=== PATIENT | female | born 1955 | race Two or more races ===

== ENCOUNTER → 2024-12-17 | Outpatient (CLI) | payer BC, SELFPAY ==
[2024-12-17 10:51] LABS: Cardiac Risk Estimate 2.2 RATIO (3.7-5.6); Cholesterol 136 mg/dL (132-200); HDL Cholesterol 63 mg/dL (40-60); LDL Cholesterol,Calculated 55 mg/dL (0-130); Triglycerides 90 mg/dL (30-150)
== END | disposition home or self-care (01) ==
LOC: COPL 09:31
PROVIDERS: PCP Family Medicine; Referring Provider Family Medicine; Visit Provider Family Medicine
DX: E78.2 Mixed hyperlipidemia (principal)
CPT/HCPCS: 36415; 80061

== ENCOUNTER 2025-03-03 01:32 | Emergency (ER) | payer BC, MEDICARE, SELFPAY ==
[2025-03-03 01:32] VITALS: BMI 24.0
[2025-03-03 01:40] VITALS: BP 156/86; PULSE 69; RESP 19; TEMP 36.5; O2SAT 100
--- NOTE | 2025-03-03 01:52 | XR_ITS ---
Examination: Abdomen sonogram, Limited Date and time of exam: March 03, 2025 0208 hrs. Indications: Onset right upper abdominal pain today Technique: Real-time ríos scale transabdominal sonographic images of the upper abdomen obtained. Findings: Multiple gallstones Gallbladder wall 0.3 cm Common bile duct 0.3 cm Pancreatic head 2.8 cm Liver 14 cm no focal liver lesions Normal hepatopedal portal venous flow Patent IVC Impression: Cholelithiasis, negative for cholecystitis
--- NOTE | 2025-03-03 01:55 | XR_ITS ---
Examination: CT abdomen with intravenous contrast CT pelvis with intravenous contrast 2-D coronal reconstructions 2-D sagittal reconstructions Date and time of exam:March 03, 2025 0406 hrs. Indications: Right upper abdominal pain epigastric pain beginning today. CTDI: vol (mGy) 6.23 DLP: (mGycm) 323 Technique: Multiple axial sections of the abdomen and pelvis have been obtained. 64 slice high-resolution scanner used. 3 mm axial sections have been obtained, post intravenous injection 60 cc [id number] 2-D sagittal, coronal reconstructions obtained. Low dose protocols were performed. One or more of the following dose reduction techniques were used; automated exposure control, adjustment of the mA and/or KV according to patient size, use of iterative reconstruction technique. Findings: No focal liver or splenic lesions Gallstones No definite gallbladder wall edema Common bile duct 6 mm no definite stones No pancreatic mass No renal or ureteral calculi Aorta normal size Normal appendix No bowel obstruction No diverticulitis No pelvic mass Intact urinary bladder Impression: Cholelithiasis Common bile duct 0.6 cm no common bile duct stones noted Normal appendix No bowel obstruction
[2025-03-03 02:17] LABS: Basophils % (Auto) 0 % (0-2.5); Eosinophils % (Auto) 0 % (0-10); Hematocrit 40.9 % (36.0-46.0); Hemoglobin 14.1 g/dL (12.0-16.0); Immature Granulocytes % (Auto) 0 % (0-0); Immature Granulocytes Auto 0.02 Thou/mm3 (0.00-0.00); Lymphocytes # (Auto) 1.2 Thou/mm3 (1.0-4.8); Lymphocytes % (Auto) 15 % (10-50); Mean Corpuscular HGB Conc 34.5 g/dl (31.0-37.0); Mean Corpuscular Volume 84 fL (80-100); Monocytes # (Auto) 0.4 Thou/mm3 (0.0-0.8); Monocytes % (Auto) 5 % (0-12); Neutrophils # (Auto) 6.1 Thou/mm3 (1.8-7.7); Neutrophils % (Auto) 79 % (37-80); Nucleated Red Blood Cell % 0 /100 WBC (0); Platelet Count 218 Thou/mm3 (140-440); RDW Standard Deviation 38.1 fL (36.4-46.3); Red Blood Count 4.86 Miln/mm3 (4.00-5.20); White Blood Count 7.7 Thou/mm3 (3.6-11.0)
[2025-03-03] MEDS: ONDANSETRON INJ 2 MG/ML INJ 2 ML 4 MG IV (02:32)
[2025-03-03] MEDS: MORPHINE SULF INJ 10 MG/ML VIAL 5 MG IVP ×2 (02:33→05:28)
[2025-03-03 02:36] LABS: Alanine Aminotransferase 25 U/L (10-49); Albumin, Serum 4.8 gm/dL (3.4-4.8); Albumin/Globulin Ratio 1.8 (1.2-2.2); Alkaline Phosphatase 63 U/L (46-116); Anion Gap 10 (7-16); Aspartate Amino Transferase 23 U/L (0-34); BUN/Creatinine Ratio 16 Ratio (12-20); Bilirubin,Total 0.7 mg/dL (0.3-1.2); Blood Urea Nitrogen 13 mg/dL (9-23); Calcium 10.7 mg/dL (8.3-10.6); Calcium (Corrected) 10.7 mg/dL (8.5-10.1); Carbon Dioxide 22.8 mMol/L (20.0-31.0); Chloride 106 mMol/L (98-107); Creatinine (Component) 0.8 mg/dL (0.6-1.3); Estimated Creatinine Clearance 58.9 mL/min (>60); Globulin 2.7 gm/dL (2.3-3.5); Glucose 137 mg/dL (74-106); Lipase 34 U/L (12-53); Osmolality,Calculated 279 (275-295); Sodium 139 mMol/L (136-145); Total Protein 7.5 gm/dL (5.7-8.2); eGFR > 60 See Note
[2025-03-03 02:48] VITALS: BP 157/82; PULSE 61; RESP 17; TEMP 36.8; O2SAT 98
--- NOTE | 2025-03-03 02:57 | PRELIM_ITS ---
Right upper quadrant abdominal ultrasound with Limited Doppler. March 03, 2025 0208 hours Clinical history: RUQ pain Findings: The liver is normal in echogenicity. No intrahepatic biliary ductal dilatation. There is a 1.9 cm nonmobile/impacted calculus at the gallbladder neck. The gallbladder is distended.No wall thickening or pericholecystic fluid is demonstrated. The common bile duct is normal in caliber at 3mm. The pancreas is unremarkable to the extent visualized. The main portal vein is patent and demonstrates hepatopetal flow.Hepatic veins are patent.There is no hydronephrosis on the right. Impression: Cholelithiasis with a nonmobile/impacted calculus at the gallbladder neck. No gallbladder wall thickening, pericholecystic fluid or biliary dilatation. Recommend clinical correlation and followup. Report Electronically Signed By: Maximino Coyne 03/03/2025 2:57:27 AM [EST]
--- NOTE | 2025-03-03 03:57 | EDNOTE_ITS ---
ED Abdominal Pain RME/HPI General Chief Complaint: Abdominal Pain Stated complaint: ABD PAIN/ VOMITING X 1DAY Time seen by provider: 03/03/25 01:52 Arrival date/time: 03/03/25 01:32 69F with history of HLD presents to ED with 1 day of RUQ/epigastric pain and N/V. Limitations: no limitations Related Data Previous Rx's ?Medication ?Instructions ?Recorded hydrocodone 5 mg-acetaminophen 325 1 tab PO BID PRN pa in #7 tabs 03/03/25 mg tablet ondansetron 4 mg disintegrating 4 mg PO Q8H PRN nausea and 03/03/25 tablet vomiting #14 tabs Allergies Allergy/AdvReac Type Severity Reaction Status Date / Time No Known Allergies Allergy Verified 02/16/24 15:14 Review of Systems Review of Systems Systems Reviewed: All systems reviewed, normal except as documented Constitutional Constitutional: Reports system reviewed and no additional complaints, except as documented, Denies fever(s) and Denies headache(s) ENT Ears, Nose, Mouth, and Throat: Denies disequilibrium and Denies headache(s) Cardiovascular Cardiovascular: Reports system reviewed and no additional complaints, except as documented, Denies chest pain and Denies dyspnea Respiratory Respiratory: Reports system reviewed and no additional complaints, except as documented, Denies cough and Denies dyspnea Gastrointestinal Gastrointestinal: Reports system reviewed and no additional complaints, except as documented, Reports as per HPI, Reports abdominal pain, Reports nausea and Reports vomiting Neurologic Neurologic: Reports system reviewed and no additional complaints, except as documented, Denies confusion, Denies disequilibrium and Denies headache(s) Psychiatric Psychiatric: Denies confusion Past Medical History Past Medical History NEUROLOGIC: Positive Neurological Disorders and Migraine; Negative Seizures CARDIAC: Positive Cardiac Disorders and Hypercholesterolemia; Negative Congestive Heart Failure RESPIRATORY: Negative Chronic Obstructive Pulmonary Disease (COPD) or Asthma GASTROINTESTINAL: Negative Gastrointestinal Disorders GENITOURINARY: Negative Genitourinary Disorders or Renal Disease REPRODUCTIVE: Positive Previous Pregnancies MUSCULOSKELETAL: Negative Musculoskeletal Disorders ENDOCRINE: Negative Endocrine Disorders, Diabetes Mellitus Type 1 or Diabetes Mellitus Type 2 HEMATOLOGIC: Negative Anemia or Sickle Cell Disease PSYCHO/SOCIAL: Negative Depression or Anxiety OTHER HISTORY: Negative Hospitalization, Down Syndrome, Falls, Blood Transfusions, Anesthesia Reactions, Organ Transplant, MRSA, Clostridium Diff icile or Cancer Family History FAMILY HISTORY: Negative Family Cardiac Disorders Surgical History SURGICAL: Positive Section; Negative Organ Transplant Social History SMOKING STATUS: Never smoker SUBSTANCE USE: does not use ED Exam General Limitations: Present no limitations General appearance: Present alert and in no apparent distress Head Head exam: Present atraumatic Eye Eye exam: Present normal appearance, PERRL and EOMI ENT ENT exam: Present normal exam, normal oropharynx and mucous membranes moist Neck Neck exam: Present normal inspection, full ROM and trachea midline Chest Chest inspection: Present normal inspection and symmetric chest wall rise Respiratory Respiratory exam: Present normal lung sounds bilaterally Cardiovascular Cardiovascular exam: Present regular rate, normal rhythm and normal heart sounds Abdominal Exam Abdominal exam: Present soft and normal bowel sounds Abdominal tenderness: Present RUQ and epigastrium Extremities Exam Extremities exam: Present normal inspection and full ROM Back Exam Back exam: Present normal inspection and full ROM Neurological Exam Neurological exam: Present alert, oriented X3 and CN II-XII intact Psychiatric Psychiatric exam: Present normal affect and normal mood Skin Skin exam: Present warm, dry, intact and normal color Course Quality Measures none Orders Category Date Time Status CT Screening NOW Care 03/03/25 01:55 Active Insert IV NOW Care 03/03/25 01:[address] abdomen pelvis w con Stat Exams 03/03/25 01:55 Taken US gall bladder Stat Exams 03/03/25 01:52 Taken CBC Stat Lab 03/03/25 02:03 Completed CMP [Comprehensive Metabolic Panel] Stat Lab 03/03/25 02:03 Completed Drug Screen,Urine Stat Lab 03/03/25 03:59 Completed Lipase Stat Lab 03/03/25 02:03 Completed UA [Urinalysis] Stat Lab 03/03/25 03:59 Completed Ketorolac Inj [Toradol Inj] Med 03/03/25 05:17 Once 15 mg IVP X1 ONE Morphine Inj Med 03/03/25 01:52 Discontinued 5 mg IVP X1 ONE Morphine Inj Med 03/03/25 05:04 Discontinued 5 mg IVP X1 ONE Ondansetron Inj [Zofran Inj] Med 03/03/25 01:52 Discontinued 4 mg IV X1 ONE Vital Signs Vital signs: Vital Signs Temperature 97.7 F 03/03/25 01:40 Pulse Rate 69 03/03/25 01:40 Respiratory Rate 19 03/03/25 01:40 Blood Pressure 156/86 H 03/03/25 01:40 Pulse Oximetry (%) 100 03/03/25 01:40 Oxygen Delivery Method Room Air 03/03/25 01:40 O2 at 100% on RA and WNLs Abdominal Pain MDM MDM Narrative MDM Narrative:: 69F with history of HLD presents to ED with 1 day of RUQ/epigastric pain and N/V. Physical exam reveals RUQ/epigastric tenderness. Patient is afebrile, alert, but appears to be in pain. CT shows possible cholecystitis. US reveals 2 cm stone in gallbladder neck, but no signs of cholecystitis. No leukocytosis. CMP normal. Lipase normal. Spoke to Dr. Brunner, who states patient does not need to be admitted and can be followed outpatient. Patient counseled could be very early cholecystitis and to return if worsening pain and/or fevers/chills. Patient understands and will do so. Patient data External records reviewed:: [facility] previous records Clinical information provided by:: patient Social determinants that could affect healthcare access:: none Patient has the following chronic illnesses:: HLD How is presenting disease/condition affected by chronic disease/condition?: uneffected by Evaluation data The following diagnostics were reviewed and interpreted by me:: lab results and radiology exam(s) Lab and/or radiology exams considered but not ordered:: ordered Interpretation Summary: above Medications / Prescriptions Medications or Prescriptions considered but not ordered:: ordered Medication administrations:: Medication Administration History Ketorolac Tromethamine (Ketorolac Inj 30 Mg/Ml Vial) 15 mg IVP X1 ONE Stop: 03/03/25 05:18 Discontinued Medications Morphine Sulfate (Morphine Sulf Inj 10 Mg/Ml Vial) 5 mg IVP X1 ONE Stop: 03/03/25 01:53 Last Admin: 03/03/25 02:33 Dose: 5 mg Documented By: EF Morphine Sulfate (Morphine Sulf Inj 10 Mg/Ml Vial) 5 mg IVP X1 ONE Stop: 03/03/25 05:05 Ondansetron HCl (Ondansetron Inj 2 Mg/Ml Inj 2 Ml) 4 mg IV X1 ONE; Protocol Stop: 03/03/25 01:53 Last Admin: 03/03/25 02:32 Dose: 4 mg Documented By: EF above Consultations Consultation(s) initiated? (list below): Yes Diagnosis Differential diagnosis abdominal pain: abdominal pain, acute appendicitis, calculus of kidney, constipation, diverticulitis, endometriosis, gastroenteritis, pancreatitis, small bowel obstruction and other (biliary disease) Most likely diagnosis given after review of the tests above:: gallstones Admission Indicated Admission indicated?: not indicated Admission Request Was there a request for admission?: Yes Admission Attestation Admission request attestation: Discussed case with [Dr. Brunner] from General Surgery service regarding admission. Discussed patients ED course, exam findings, labs, and radiology results. The Surgeon [declines] to accept the patient for admission. Disposition Plan Disposition Plan: Discharge Discharge Attestation Discharge Attestation: The patient and all family members were given an opportunity to ask questions and understood the discharge instructions. Discharge instructions specifically effects, indications for sooner follow up or return to the emergency department, and the expected course of current diagnosis. Patient condition: Stable Discharge Plan Plan Patient Disposition: HOME (Self Care) Disposition Comment: Stable Prescriptions/Referrals Prescriptions/Med Rec: New hydrocodone-acetaminophen 5-325 mg tablet 1 tab PO BID MDD 2 PRN (Reason: pain) Qty: 7 0RF ondansetron 4 mg tablet,disintegrating 4 mg PO Q8H PRN (Reason: nausea and vomiting) Qty: 14 0RF Referrals: Temporary Provider,ED [Physician] - In 1 week Problem List Clinical Impression: Gallstones Patient/Caregiver Discharge Instructions Education Materials: ED Gallstones with Biliary Colic Additional Instructions: Please follow-up with PCP within 24-48 hours and return immediately if symptoms worsen. Print Language: British Stand Alone Forms: Patient Portal Info Letter HAO/LEIA Supervising Physician HAO/LEIA Supervising Physician: Dr. Nance
[2025-03-03 04:01] LABS: Collection Type, Urine Clean Catch; Squamous Epithelial Cell,Urine 0 /hpf (0-5)
[2025-03-03 04:07] LABS: Bilirubin,Urine Negative (Negative); Blood,Urine 2+ (Negative); Clarity,Urine Clear (Clear/Hazy); Color,Urine Yellow (Lt Yel-Yel); Glucose, Urine Negative (Negative); Hyaline Casts,Urine < 1 /hpf (0-1); Ketones,Urine Negative (Negative); Leukocyte Esterase,Urine Positive (Negative); Nitrite,Urine Negative (Negative); PH,Urine 5.5 (5.0-7.0); Protein,Urine Trace (Neg - Trace); RBC,Urine 8 /hpf (0-3); Specific Gravity,Urine 1.026 (1.001-1.035); Urobilinogen,Urine Negative mg/dL (0.0-1.0); WBC,Urine 4 /hpf (0-5)
[2025-03-03 04:17] LABS: Amphetamine/Methamp Scrn,U Negative (Negative); Barbiturate Screen,Urine Negative (Negative); Benzodiazepines Screen,Urine Negative (Negative); Benzoylecgonine Screen, Ur Negative (Negative); Fentanyl Screen,Urine Negative (Negative); Opiate Screen,Urine Negative (Negative); THC Screen,Urine Negative (Negative)
--- NOTE | 2025-03-03 04:58 | PRELIM_ITS ---
CT scan of the abdomen and pelvis with intravenous contrast (axial sections with sagittal and coronal reformats). March 03, 2025 at 0406 hours Clinical History: Right upper quadrant epigastric pain Correlated with the prior ultrasound study dated March 03, 2025. Findings: Multiple peripherally calcified gallstones suggested within the gallbladder. There may be gallbladder wall thickening anteriorly. Few nonspecific left lobe hepatic hypodensities suggested and may represent cysts. The spleen, pancreas, adrenals and kidneys are unremarkable. Urinary bladder is of normal partially filled configuration. Reproductive organs are unremarkable. There is underdistention of the stomach and portions of large bowel which evaluation. There are colonic diverticula without evidence of diverticulitis. Appendix is normal. There is no free intraperitoneal air or fluid. There is no abdominal or pelvic lymphadenopathy. There are bibasilar densities which may represent atelectasis and/or pneumonia. There is no acute osseous abnormality. Impression: 1. Possible acute calculus cholecystitis. Recommend correlation with nuclear medicine hepatobiliary scan. 2. Colonic diverticula without evidence of diverticulitis. Report Electronically Signed By: David West 03/03/2025 4:58:14 AM [EST]
[2025-03-03] MEDS: KETOROLAC INJ 30 MG/ML VIAL 15 MG IVP (05:28)
[2025-03-03 05:53] VITALS: BP 151/88; PULSE 62; RESP 16; TEMP 36.7; O2SAT 98
== END 2025-03-03 05:56 | disposition home or self-care (01) ==
PROVIDERS: Physician Assistant; Emergency Provider Emergency Medicine; PCP Family Medicine
DX: K80.20 Calculus of gallbladder without cholecystitis without obstruction (principal); E78.00 Pure hypercholesterolemia, unspecified
CPT/HCPCS: 36415; 74177; 76705; 80053; 80307; 81001; 83690; 85025; 96374; 96375; 96376; 99285; A4649; J1885; J2270; J2405; Q9967

== ENCOUNTER 2025-03-04 17:04 | Emergency (ER) | payer MEDICARE, BC, SELFPAY ==
[2025-03-04 17:35] VITALS: BP 121/73; PULSE 76; RESP 18; TEMP 36.6; O2SAT 97
[2025-03-04 17:45] VITALS: BP 136/77; PULSE 74; RESP 19; TEMP 36.9; O2SAT 95; BMI 23.0
--- NOTE | 2025-03-04 17:47 | PD.EDRME ---
Rapid Medical Screening Exam RME Arrival date/time: 03/04/25 17:04 69-year-old female presents to the emergency department a day for complaints of upper abdominal pain patient was evaluated yesterday and diagnosed with gallstones Chief Complaint: Flu Like Symptoms Vital signs: Vital Signs Temperature 98 F 03/04/25 17:35 Pulse Rate 76 03/04/25 17:35 Respiratory Rate 18 03/04/25 17:35 Blood Pressure 121/73 03/04/25 17:35 Pulse Oximetry (%) 97 03/04/25 17:35 Oxygen Delivery Method Room Air 03/04/25 17:35
--- NOTE | 2025-03-04 18:39 | PD.EDABDPN ---
ED Abdominal Pain RME/HPI General Chief Complaint: Flu Like Symptoms Stated complaint: Abdominal pain with nausea and vomiting Time seen by provider: 03/04/25 18:38 Arrival date/time: 03/04/25 17:04 RME / HPI RME / HPI narrative: 03/04/25 17:04 69-year-old female presents to the emergency department a day for complaints of upper abdominal pain patient was evaluated yesterday and diagnosed with gallstones Related Data Previous Rx's ?Medication ?Instructions ?Recorded hydrocodone 5 mg-acetaminophen 325 1 tab PO BID PRN pain #7 tabs 03/03/25 mg tablet ondansetron 4 mg disintegrating 4 mg PO Q8H PRN nausea and 03/03/25 tablet vomiting #14 tabs Allergies Allergy/AdvReac Type Severity Reaction Status Date / Time No Known Allergies Allergy Verified 03/04/25 17:07 Course Orders Category Date Time Status US gall bladder Stat Exams 03/04/25 18:38 Ordered CBC Stat Lab 03/04/25 17:46 Ordered Comprehensive Metabolic Panel Stat Lab 03/04/25 17:46 Ordered Lipase Stat Lab 03/04/25 17:46 Ordered Vital Signs Vital signs: Vital Signs Temperature 98 F 03/04/25 17:35 Pulse Rate 76 03/04/25 17:35 Respiratory Rate 18 03/04/25 17:35 Blood Pressure 121/73 03/04/25 17:35 Pulse Oximetry (%) 97 03/04/25 17:35 Oxygen Delivery Method Room Air 03/04/25 17:35 Discharge Plan Prescriptions/Referrals Prescriptions/Med Rec: No Action hydrocodone-acetaminophen 5-325 mg tablet 1 tab PO BID MDD 2 PRN (Reason: pain) Qty: 7 0RF ondansetron 4 mg tablet,disintegrating 4 mg PO Q8H PRN (Reason: nausea and vomiting) Qty: 14 0RF Referrals: Annabelle Mane MD [Primary Care Provider] - In 1 week Patient/Caregiver Discharge Instructions Print Language: Ecuadorean
[2025-03-04 18:53] LABS: Basophils % (Auto) 0 % (0-2.5); Eosinophils # (Auto) 0.1 Thou/mm3 (0.0-0.5); Eosinophils % (Auto) 1 % (0-10); Hematocrit 41.1 % (36.0-46.0); Hemoglobin 13.9 g/dL (12.0-16.0); Immature Granulocytes % (Auto) 0 % (0-0); Immature Granulocytes Auto 0.03 Thou/mm3 (0.00-0.00); Lymphocytes # (Auto) 1.1 Thou/mm3 (1.0-4.8); Lymphocytes % (Auto) 15 % (10-50); Mean Corpuscular HGB Conc 33.8 g/dl (31.0-37.0); Mean Corpuscular Hemoglobin 28.9 pg (25.0-35.0); Mean Corpuscular Volume 85 fL (80-100); Monocytes # (Auto) 0.8 Thou/mm3 (0.0-0.8); Monocytes % (Auto) 11 % (0-12); Neutrophils # (Auto) 5.3 Thou/mm3 (1.8-7.7); Neutrophils % (Auto) 73 % (37-80); Nucleated Red Blood Cell % 0 /100 WBC (0); Platelet Count 174 Thou/mm3 (140-440); RDW Standard Deviation 39.6 fL (36.4-46.3); Red Blood Count 4.81 Miln/mm3 (4.00-5.20); White Blood Count 7.2 Thou/mm3 (3.6-11.0)
[2025-03-04 19:17] LABS: Alanine Aminotransferase 25 U/L (10-49); Albumin, Serum 4.7 gm/dL (3.4-4.8); Albumin/Globulin Ratio 1.8 (1.2-2.2); Alkaline Phosphatase 57 U/L (46-116); Anion Gap 9 (7-16); Aspartate Amino Transferase 18 U/L (0-34); BUN/Creatinine Ratio 19 Ratio (12-20); Bilirubin,Total 0.8 mg/dL (0.3-1.2); Blood Urea Nitrogen 15 mg/dL (9-23); Calcium 10.9 mg/dL (8.3-10.6); Calcium (Corrected) 10.9 mg/dL (8.5-10.1); Carbon Dioxide 27.5 mMol/L (20.0-31.0); Chloride 105 mMol/L (98-107); Creatinine (Component) 0.8 mg/dL (0.6-1.3); Estimated Creatinine Clearance 56.4 mL/min (>60); Globulin 2.6 gm/dL (2.3-3.5); Glucose 117 mg/dL (74-106); Lipase 25 U/L (12-53); Osmolality,Calculated 283 (275-295); Potassium 3.8 mMol/L (3.4-5.1); Sodium 141 mMol/L (136-145); Total Protein 7.3 gm/dL (5.7-8.2); eGFR > 60 See Note
== END 2025-03-04 19:15 | disposition left against medical advice (07) ==
PROVIDERS: Nurse Practitioner Primary Care; Emergency Provider Emergency Medicine; PCP Family Medicine
DX: K80.20 Calculus of gallbladder without cholecystitis without obstruction (principal); Z53.29 Procedure and treatment not carried out because of patient's decision for other reasons
CPT/HCPCS: 36415; 76705; 80053; 81001; 83690; 85025; 99281

== ENCOUNTER 2025-03-07 12:36 | Day surgery (SDC) | payer BC, MEDICARE, SELFPAY ==
[2025-03-07] VITALS (12 sets, daily range): BP systolic 117–152; BP diastolic 70–91; PULSE 57–79; RESP 14–20; TEMP 36.1–37.2; O2SAT 95–100; BMI 23.8; BMI 25.9
--- NOTE | 2025-03-07 12:57 | PD.EDRME ---
Rapid Medical Screening Exam RME Arrival date/time: 03/07/25 12:36 69-year-old female with no known medical history presents to the emergency room with orders from Dr Brunner for a cholecystectomy. I have greeted and performed a focused initial assessment of this patient. A comprehensive ED assessment and evaluation of the patient, analysis of all test results, and completion of the medical decision making process will be conducted by additional ED providers. Chief Complaint: Abdominal Pain Vital signs: Vital Signs Temperature 98.6 F 03/07/25 12:50 Pulse Rate 64 03/07/25 12:50 Respiratory Rate 19 03/07/25 12:50 Blood Pressure 134/84 H 03/07/25 12:50 Pulse Oximetry (%) 96 03/07/25 12:50 Oxygen Delivery Method Room Air 03/07/25 12:50 Vital signs reviewed by provider: Yes
--- NOTE | 2025-03-07 13:34 | PD.EDABDPN ---
ED Abdominal Pain RME/HPI General Chief Complaint: Abdominal Pain Stated complaint: ABDOMINAL PAIN X5 DAYS Time seen by provider: 03/07/25 13:25 Arrival date/time: 03/07/25 12:36 RME / HPI RME / HPI narrative: 03/07/25 12:36 69-year-old female with no known medical history presents to the emergency room with orders from Dr Brunner for a cholecystectomy. I have greeted and performed a focused initial assessment of this patient. A comprehensive ED assessment and evaluation of the patient, analysis of all test results, and completion of the medical decision making process will be conducted by additional ED providers. DR. VILLALOBOS MAIN ED EVALUATION: 69 year old female presents to the emergency department accompanied by her daughter with complaint of abdominal pain. Patient was sent by Dr. Honeycutt?s office for surgery. Last oral intake was water at 12 PM today; the patient had no food today. Associated symptoms include nausea. No vomiting or diarrhea. No other symptoms reported. PMHx: Gallstones, migraines, hypercholesterolemia, and a section. Social Hx: No tobacco, alcohol, or substance use. Related Data Previous Rx's ?Medication ?Instructions ?Recorded hydrocodone 5 mg-acetaminophen 325 1 tab PO BID PRN pain #7 tabs 03/03/25 mg tablet ondansetron 4 mg disintegrating 4 mg PO Q8H PRN nausea and 03/03/25 tablet vomiting #14 tabs Allergies Allergy/AdvReac Type Severity Reaction Status Date / Time No Known Allergies Allergy Verified 03/04/25 17:07 Review of Systems Review of Systems Systems Reviewed: All systems reviewed, normal except as documented Past Medical History Past Medical History NEUROLOGIC: Positive Neurological Disorders and Migraine CARDIAC: Positive Cardiac Disorders and Hypercholesterolemia REPRODUCTIVE: Positive Previous Pregnancies Surgical History SURGICAL: Positive Section Social History SMOKING STATUS: Never smoker SUBSTANCE USE: does not use ALCOHOL: Never ED Exam Narrative Physical exam: GENERAL APPEARANCE: alert and oriented x 4, well-developed, well-nourished VITALS: All vitals were reviewed and the pulse ox is 96% on room air, which is normal according to my interpretation. HEENT: Normocephalic, atraumatic; pupils equal, round, reactive to light; EOMI; mucous membranes pink, moist; oropharynx clear NECK: Supple LUNGS: CTABL; no wheezes, no rales, no rhonchi HEART: Regular rate, regular rhythm; normal S1, S2; no murmurs ABDOMEN: non distended; normal BS; tender on palpation of the mid abdomen, no rebound; no masses, no organomegaly, no hernia BACK: no CVA tenderness EXTREMITIES: atraumatic; no edema NEUROLOGIC: awake; alert and oriented x4; cranial nerves II-XII grossly intact; no focal sensory or motor deficits PSYCHIATRIC: appropriate mood and affect SKIN: warm, dry, normal color; no rashes Course Quality Measures none Orders Category Date Time Status Place in Observation Status Routine Admission 03/07/25 14:48 Active Bedside COVID-19 Antigen Test NOW Care 03/07/25 13:35 Active Well Blower NOW Care 03/07/25 13:35 Active EKG (ED ONLY) *Do not use* NOW Care 03/07/25 13:35 Completed Insert IV STAT Care 03/07/25 12:54 Active EKG (ED Only) Stat Exams 03/07/25 13:35 Draft B-Type Natriuretic Peptide Stat Lab 03/07/25 14:10 Received CBC Stat Lab 03/07/25 14:10 Completed Comprehensive Metabolic Panel Stat Lab 03/07/25 14:10 Received Lipase Stat Lab 03/07/25 14:10 Received Magnesium Stat Lab 03/07/25 14:10 Received Partial Thromboplastin Time Stat Lab 03/07/25 14:10 Completed Prothrombin Time with INR Stat Lab 03/07/25 14:10 Completed Troponin I Stat Lab 03/07/25 14:10 Received Morphine Inj Med 03/07/25 13:36 Discontinued 5 mg IVP X1 ONE Ondansetron Inj [Zofran Inj] Med 03/07/25 13:36 Discontinued 4 mg IV X1 ONE Piper/Tazo 3.375 gm Premix [Zosyn] Med 03/07/25 12:54 Discontinued 3.375 gm in 50 ml IV X1 Sodium Chloride 0.9% 1000 ml [Ns] 1,000 ml Med 03/07/25 12:55 Active IV 125 mls/hr Vital Signs Vital signs: Vital Signs Temperature 98.6 F 03/07/25 12:50 Pulse Rate 64 03/07/25 12:50 Respiratory Rate 19 03/07/25 12:50 Blood Pressure 134/84 H 03/07/25 12:50 Pulse Oximetry (%) 96 03/07/25 12:50 Oxygen Delivery Method Room Air 03/07/25 12:50 Abdominal Pain MDM MDM Narrative MDM Narrative:: I, Kiarra Sena am scribing for and in the presence of Dr. Villalobos. Patient data External records reviewed:: [facility] previous records (Reviewed last ED visit dated 03/04/25, discharged with the following: Abdominal pain with nausea and vomiting) Clinical information provided by:: patient and family (daughter) Social determinants that could affect healthcare access:: none Patient has the following chronic illnesses:: Gallstones, migraines, hypercholesterolemia, and a section. How is presenting disease/condition affected by chronic disease/condition?: exacerbated by Evaluation data The following diagnostics were reviewed and interpreted by me:: lab results and EKG tracing(s) Lab and/or radiology exams considered but not ordered:: none Interpretation Summary: EKG#1: EKG at 1428 hours. Interpreted by me: sinus bradycardia, rate 57, T wave inversion in V1 and lead 3 Medications / Prescriptions Medications or Prescriptions considered but not ordered:: none Medication administrations:: Medication Administration History Sodium Chloride (Ns) 1,000 mls @ 125 mls/hr IV .Q8H RACHEL Stop: 04/06/25 12:54 Last Admin: 03/07/25 14:15 Dose: 125 mls/hr Documented By: DAWSON Discontinued Medications Bupivacaine HCl/Epinephrine Bitart (Bupivacaine Mpf/Epi 0.5% 30 Ml Vial 1:200,000) Confirm Administered Dose 30 ml .ROUTE .STK-MED ONE Stop: 03/07/25 14:54 Piperacillin/Tazobactam/Dextrose (Zosyn) 3.375 gm in 50 mls @ 100 mls/hr IV X1 ONE Stop: 03/07/25 13:23 Last Admin: 03/07/25 14:15 Dose: 100 mls/hr Documented By: DAWSON Morphine Sulfate (Morphine Sulf Inj 10 Mg/Ml Vial) 5 mg IVP X1 ONE Stop: 03/07/25 13:37 Last Admin: 03/07/25 14:23 Dose: Not Given Documented By: DB Non-Admin Reason: Change of Condition Ondansetron HCl (Ondansetron Inj 2 Mg/Ml Inj 2 Ml) 4 mg IV X1 ONE Stop: 03/07/25 13:37 Last Admin: 03/07/25 14:23 Dose: Not Given Documented By: DB Non-Admin Reason: Change of Condition see above Consultations Consultation(s) initiated? (list below): Yes Consultation #1 (Physician, Specialty, Details): Discussed test HPI, PMHx, lab, radiology results and/or management with Dr. Honeycutt. Will admit for further evaluation and management. Accepts patient for surgery. Time: 13:43 Diagnosis Differential diagnosis abdominal pain: abdominal pain Most likely diagnosis given after review of the tests above:: Acute cholecystitis Admission Indicated Admission indicated?: indicated Admission Request Was there a request for admission?: Yes Admission Attestation Admission request attestation: Discussed case with [] from Hospitalist service regarding admission. Discussed patients ED course, exam findings, labs, and radiology results. The Hospitalist [agrees,declines] to accept the patient for admission. Disposition Plan Disposition Plan: Admit Discharge Plan Problem List Clinical Impression: Acute cholecystitis
--- NOTE | 2025-03-07 13:35 | EKG_ITS ---
[facility] Test Date: 2025-03-07 Pat Name: WADE COKER Department: Room: - Gender: Female [employer]: : 1955 Requested By: Yoselin Guevara Order Number: [id number] Reading MD: Yoselin Guevara Measurements Intervals [place] Rate: 57 P: 30 TX: 129 QRS: -13 QRSD: 110 T: 11 QT: 427 QTc: 419 Interpretive Statements SINUS BRADYCARDIA POSSIBLE LATERAL MYOCARDIAL INFARCTION , PROBABLY OLD [30 ms Q WAVE IN I/aVL/V5/V6] Compared to ECG 03/07/2020 13:15:39 Sinus rhythm no longer present Myocardial infarct finding still present /store/S0/[id number]/ecg/[id number].pdf
[2025-03-07] MEDS: PIPER/TAZO 3.375 GM PREMIX 3.375 GM/50 ML BAG IV ×2 (14:15→22:10)
[2025-03-07] MEDS: SODIUM CHLORIDE 0.9% 1000 ML 1,000 ML 125 ML IV (14:15)
[2025-03-07 14:21] LABS: Basophils % (Auto) 0 % (0-2.5); Eosinophils # (Auto) 0.1 Thou/mm3 (0.0-0.5); Eosinophils % (Auto) 1 % (0-10); Hemoglobin 13.2 g/dL (12.0-16.0); Immature Granulocytes % (Auto) 0 % (0-0); Immature Granulocytes Auto 0.02 Thou/mm3 (0.00-0.00); Lymphocytes # (Auto) 1.4 Thou/mm3 (1.0-4.8); Lymphocytes % (Auto) 28 % (10-50); Mean Corpuscular HGB Conc 33.8 g/dl (31.0-37.0); Mean Corpuscular Hemoglobin 28.8 pg (25.0-35.0); Mean Corpuscular Volume 85 fL (80-100); Monocytes # (Auto) 0.6 Thou/mm3 (0.0-0.8); Monocytes % (Auto) 12 % (0-12); Neutrophils # (Auto) 2.8 Thou/mm3 (1.8-7.7); Neutrophils % (Auto) 58 % (37-80); Nucleated Red Blood Cell % 0 /100 WBC (0); Platelet Count 197 Thou/mm3 (140-440); Red Blood Count 4.58 Miln/mm3 (4.00-5.20); White Blood Count 4.8 Thou/mm3 (3.6-11.0)
[2025-03-07 14:34] LABS: Partial Thromboplastin Time 25.7 Seconds (22.0-36.0); Prothrombin Time 11.4 Seconds (9.0-12.2)
--- NOTE | 2025-03-07 14:35 | PC.NURSE ---
REPORT GIVEN TO YOUNG FROM SURGERY AT THIS TIME
[2025-03-07 14:42] LABS: Alanine Aminotransferase 28 U/L (10-49); Albumin, Serum 4.4 gm/dL (3.4-4.8); Albumin/Globulin Ratio 1.6 (1.2-2.2); Alkaline Phosphatase 73 U/L (46-116); Anion Gap 9 (7-16); Aspartate Amino Transferase 18 U/L (0-34); BUN/Creatinine Ratio 21 Ratio (12-20); Bilirubin,Total 0.9 mg/dL (0.3-1.2); Blood Urea Nitrogen 15 mg/dL (9-23); Calcium 10.3 mg/dL (8.3-10.6); Calcium (Corrected) 10.3 mg/dL (8.5-10.1); Carbon Dioxide 28.9 mMol/L (20.0-31.0); Chloride 105 mMol/L (98-107); Creatinine (Component) 0.7 mg/dL (0.6-1.3); Estimated Creatinine Clearance 65.9 mL/min (>60); Globulin 2.7 gm/dL (2.3-3.5); Glucose 82 mg/dL (74-106); Lipase 37 U/L (12-53); Osmolality,Calculated 284 (275-295); Potassium 3.4 mMol/L (3.4-5.1); Sodium 143 mMol/L (136-145); Total Protein 7.1 gm/dL (5.7-8.2); Troponin I < 0.020 ng/mL (0.0-0.045); eGFR > 60 See Note
[2025-03-07 14:59] LABS: B-Type Natriuretic Peptide 20 pg/mL (0-100)
--- NOTE | 2025-03-07 16:14 | ESHP_ITS ---
HPI Date of Admission 03/07/25 14:48 Chief Complaint Chief Complaint: Patient is admitted with a diagnosis of acute calculus cholecystitis HPI History of present illness revealed that the patient has been in good health until last Friday when she started a pain in the upper abdomen associated with vomiting. She came to the emergency room and was found to have a gallstones but was discharged because her labs were normal. She continued to have pain and vomiting on return to the emergency room on Friday but was once again discharged. She is in continuous pain since discharge and came to my office today. My examination showed significant tenderness in the right upper quadrant with a positive Bustillos sign and therefore she was sent to the emergency room. Patient denies any fever or chills or jaundice. She has a history of gallstones and her mother. Per surgery consent of section. She denies any history like diabetes or hypertension but has cholesterol Past Medical History Past Medical History NEUROLOGIC: Positive Neurological Disorders and Migraine; Negative Seizures CARDIAC: Positive Cardiac Disorders and Hypercholesterolemia; Negative Congestive Heart Failure RESPIRATORY: Negative Chronic Obstructive Pulmonary Disease (COPD) or Asthma GASTROINTESTINAL: Negative Gastrointestinal Disorders GENITOURINARY: Negative Genitourinary Disorders or Renal Disease REPRODUCTIVE: Positive Previous Pregnancies MUSCULOSKELETAL: Negative Musculoskeletal Disorders ENDOCRINE: Negative Endocrine Disorders, Diabetes Mellitus Type 1 or Diabetes Mellitus Type 2 HEMATOLOGIC: Negative Anemia or Sickle Cell Disease PSYCHO/SOCIAL: Negative Depression or Anxiety OTHER HISTORY: Negative Hospitalization, Down Syndrome, Falls, Blood Tr ansfusions, Anesthesia Reactions, Organ Transplant, MRSA, Clostridium Difficile or Cancer Family History FAMILY HISTORY: Negative Family Cardiac Disorders Surgical History SURGICAL: Positive Section; Negative Organ Transplant Social History SMOKING STATUS: Never smoker SUBSTANCE USE: does not use Meds Home Medications and Allergies Allergies Allergy/AdvReac Type Severity Reaction Status Date / Time No Known Allergies Allergy Verified 03/04/25 17:07 Exam Vital Signs Temp Pulse Resp BP Pulse Ox O2 Del Method 98.5 F 57 L 17 124/70 96 Room Air 03/07/25 14:24 03/07/25 14:24 03/07/25 14:24 03/07/25 14:24 03/07/25 14:24 03/07/25 14:24 Narrative Exam Physical examination revealed a thin built female who is 5 foot 1 inch tall weighing 137 pounds with BMI of 25.9 Constitutional Constitutional: severe distress Routine Abdominal Exam Comments: Abdominal exam showed considerable tenderness in the right upper quadrant with a positive Bustillos sign. Surgical scar in the lower abdomen from section Routine Rectal Exam Comments: Deferred Routine Exam Comments: Deferred Routine Extremities Exam Comments: Within normal limits Results Results: Laboratory Laboratory Narrative: Laboratory workup showed normal WBC. Liver enzymes are normal Results: Imaging Imaging narrative: Ultrasound of the abdomen showed large stone impacted at the neck of the gallbladder. CT scan showed no other abnormality Assessment & Plan Additional Assessment Additional comments: Impression: Acute calculus cholecystitis possibly with cystic duct obstruction Plan Plan: I advised the patient to undergo laparoscopic cholecystectomy because of the ongoing pain for the past 5 days. I told her that the laparoscopic will be attempted but because of the duration of time that has elapsed she may have need for open cholecystectomy. The risks of the laparoscopic procedure including injury to the bowel or injury to the common bile duct requiring additional surgery were discussed with the patient and the family. She is agreeable. Patient has been admitted through the emergency room and she has started on Zosyn. She will be taken to the operating room as soon as possible. Quality Measures Quality Measures none Advance care planning discussed with:: child (Daughter)
--- NOTE | 2025-03-07 18:11 | PD.SUROPNT ---
Date of Procedure 03/07/25 Pre Op Diagnosis Acute calculus cholecystitis Post Op Diagnosis Same Procedure Laparoscopic cholecystectomy Findings Patient was found to have extensive inflammation in gallbladder with thickening and had a stone impacted at the neck Procedure Description After endotracheal anesthesia was given the patient was placed in supine position and the abdomen was prepped with chloroprep solution and draped in a sterile manner. After time out was performed I injected a few cc of of half percent Marcaine with epinephrine below the umbilicus and I made an incision for about 3 cm in length. The fascia was cleaned and Veress needle was inserted to create a pneumoperitoneum up to 15 mmHg. Then introduced a 12 mm trocar and a 10 mm camera through the fascia and I inspected the intra-abdominal organs as well as the gallbladder and the liver. Another 5 mm trocar was inserted in the epigastric region under direct vision after injecting some local anesthesia. At this time the patient was kept in reverse Trendelenburg position with the left lateral tilt. The third 5 mm trocar was inserted over the mid axillary line under direct vision and a Reyes and Aneta grasper was used to hold the fundus of the gallbladder. The retraction was carried out by the critical care physician assistant moving the fundus of the gallbladder towards the right shoulder of the patient to create enough traction. I placed a another 5 mm trocar in the midaxillary line just lateral to the rectus muscle under direct vision. The gallbladder has to be decompressed before it could be grasped. I used a fenestrated grasper to retract the neck of the gallbladder laterally towards the patient's right hip. The Calot's triangle was exposed and I achieved the critical view of safety as follows: I dissected out the fatty tissue from the hepatocystic triangle and cleared this area. I also dissected inferior and posterior to the gallbladder to identify the cystic duct and the gallbladder wall. Then superiorly I dissected along the cystic plate up to lower one third third of the gallbladder to lift the gallbladder from the liver. At this time I confirmed that only 2 structures entering the gallbladder were cystic artery and the cystic duct. The common duct was seen distally but no dissection was carried out around the duct. I did not see any need for operative cholangiogram in this patient. The cystic duct was clipped doubly and then divided and cystic artery was similarly dealt with. Then the gallbladder was removed from the liver bed using Harmonic cl to control the small blood vessels as the dissection proceeded. Then the gallbladder was from the liver bed completely and delivered through the umbilical port using an Endopouch. The liver bed was coagulated with cautery to obtain satisfactory hemostasis. The trocars were pulled out from the abdominal cavity and the fascia at the umbilical incision was closed with interrupted 0 Ethibond. Subcutaneous tissues was closed with 3-0 chromic and injected a few cc of half percent Marcaine with epinephrine and the skin was closed with interrupted 4-0 Monocryl subcuticular stitches at all the trocar sites. Dressing was applied with 2 x 2 and Tegaderm. Patient tolerated the procedure well and returned to recovery room in stable condition. Anesthesia GETA Pathology / specimen Other IVF Infused 800 Estimated Blood Loss 50 Condition Stable Disposition PACU Surgeon Amie Brunner MD Surgical Staff Operation Date: 03/07/25 16:00 Case Staff Anesthesiologist: Merlin Staley RNstores naval: Alma Morales
--- NOTE | 2025-03-07 18:25 | SUR.PHASEI ---
182 Patient arrived to recovery resting comfortably in bed, sleeping and able to arouse with verbal prompting then drifts back to sleep, breathing unlabored, vital signs stable, denies pain, dressing intact to abdomen; dissolvable sutures, steri-strips, gauze, tegaderm, no bleeding noted, denies nausea, report received from Dr. Staley and Zhao PASCUAL
[2025-03-07] MEDS: HYDROmorphone INJ 2 MG/ML VIAL 0.5 MG IV (18:58)
[2025-03-07] MEDS: ONDANSETRON INJ 2 MG/ML INJ 2 ML 4 MG IV (19:21)
--- NOTE | 2025-03-07 19:30 | SUR.PHASEI ---
1930 patients family at bedside with patient
--- NOTE | 2025-03-07 19:48 | SUR.PHASEI ---
1945 Report given to Amita PASCUAL, patient meets discharge criteria from recovery, awake and alert, breathing unlabored, vital sign stable, denies pain, drinking 7up; denies nausea, dressing intact; no bleeding noted, patient family at bedside with patient. 1947 Patient transported via bed to room 354 without incident, Amita PASCUAL promptly in patients room, patient family at bedside, patient sitting up comfortably in bed with call light in reach when this literary writer left patients room
[2025-03-07] MEDS: SODIUM CHLORIDE 0.9% 1000 ML 1,000 ML 80 ML IV (23:46)
[2025-03-08] VITALS: BP 126/70; RESP 17; TEMP 36.1; O2SAT 95
[2025-03-08 04:00] VITALS: BP 117/69; PULSE 60; RESP 17; TEMP 36.4; O2SAT 95
[2025-03-08] MEDS: PIPER/TAZO 3.375 GM PREMIX 3.375 GM/50 ML BAG IV (05:40)
[2025-03-08 05:53] LABS: Basophils % (Auto) 0 % (0-2.5); Eosinophils % (Auto) 0 % (0-10); Hematocrit 36.4 % (36.0-46.0); Hemoglobin 12.3 g/dL (12.0-16.0); Immature Granulocytes % (Auto) 0 % (0-0); Immature Granulocytes Auto 0.01 Thou/mm3 (0.00-0.00); Lymphocytes # (Auto) 0.6 Thou/mm3 (1.0-4.8); Lymphocytes % (Auto) 14 % (10-50); Mean Corpuscular HGB Conc 33.8 g/dl (31.0-37.0); Mean Corpuscular Hemoglobin 28.6 pg (25.0-35.0); Mean Corpuscular Volume 85 fL (80-100); Monocytes # (Auto) 0.3 Thou/mm3 (0.0-0.8); Monocytes % (Auto) 7 % (0-12); Neutrophils # (Auto) 3.6 Thou/mm3 (1.8-7.7); Neutrophils % (Auto) 79 % (37-80); Nucleated Red Blood Cell % 0 /100 WBC (0); Platelet Count 200 Thou/mm3 (140-440); RDW Standard Deviation 38.4 fL (36.4-46.3); White Blood Count 4.5 Thou/mm3 (3.6-11.0)
[2025-03-08 06:19] LABS: Alanine Aminotransferase 47 U/L (10-49); Albumin, Serum 4.1 gm/dL (3.4-4.8); Alkaline Phosphatase 75 U/L (46-116); Aspartate Amino Transferase 47 U/L (0-34); Bilirubin,Direct 0.2 mg/dL (0.0-0.3); Bilirubin,Total 0.7 mg/dL (0.3-1.2); Total Protein 6.3 gm/dL (5.7-8.2)
[2025-03-08 07:09] VITALS: PULSE 63; RESP 18; RESP 96
[2025-03-08 08:00] VITALS: BP 112/79; PULSE 59; RESP 16; TEMP 36.5; O2SAT 96
--- NOTE | 2025-03-08 10:12 | PC.SS ---
Patient Carla Gates is a 69 Year old female admitted for Acute Choleycystitis. SS met with patient at bedside to discuss discharge plan, Patient appeared to be alert and oriented. Patient reports she lives at home with her , Pepe Gates who she reports is her surrogate decision maker [phone]. Patients choice of pharmacy is [facility] and PCP is Annabelle Allen. Patient reports she does not utilize any source of DME to assist with ambulation, patient is able to complete ADL's independently. At time of discharge patient will return back home, no further SS needs at the time. Next of kin: , Pepe Gates Discharge Plan: Home
--- NOTE | 2025-03-08 10:55 | PD.SURPROG ---
Documentation for date of: 03/08/25 Subjective Subjective Brief History: History of present illness revealed that the patient has been in good health until last Friday when she started a pain in the upper abdomen associated with vomiting. She came to the emergency room and was found to have a gallstones but was discharged because her labs were normal. She continued to have pain and vomiting on return to the emergency room on Friday but was once again discharged. She is in continuous pain since discharge and came to my office today. My examination showed significant tenderness in the right upper quadrant with a positive Bustillos sign and therefore she was sent to the emergency room. Patient denies any fever or chills or jaundice. She has a history of gallstones and her mother. Per surgery consent of section. She denies any history like diabetes or hypertension but has cholesterol Narrative: The patient is feeling better after surgery last night. She is tolerating clear liquids and her pain is reasonably under control. Exam Vital Signs Temp Pulse Resp BP Pulse Ox O2 Del Method 97.7 F 59 L 16 112/79 96 Room Air 03/08/25 08:00 03/08/25 08:00 03/08/25 08:00 03/08/25 08:00 03/08/25 08:00 03/08/25 08:00 Her vital signs are normal Routine Abdominal Exam Comments: Abdominal examination is negative Results Results: Laboratory Laboratory Narrative: WBC and liver enzymes are normal Assessment & Plan Assessment Additional comments: Impression: Stable postoperative course following laparoscopic cholecystectomy for acute cholecystitis Plan Plan: We shall discharge the patient today and follow her up next week Procedures Procedures Laparoscopic cholecystectomy
[2025-03-08 12:00] VITALS: BP 122/68; PULSE 60; RESP 17; TEMP 36.9; O2SAT 99
== END 2025-03-08 13:28 | disposition home or self-care (01) ==
LOC: SERX 14:05 → SERHOLD 15:13 → S3NX 03-08 06:50 → S2EX 03-08 11:05 → S3NX 03-08 11:05
PROVIDERS: Emergency Provider Emergency Medicine; PCP Family Medicine; Visit Provider Surgery
PROC: 0FT44ZZ Resection of Gallbladder, Percutaneous Endoscopic Approach (ICD-10-PCS; CPT 47562; principal; 2025-03-07 16:00)
DX: K81.2 Acute cholecystitis with chronic cholecystitis (principal); K82.A1 Gangrene of gallbladder in cholecystitis; Z01.810 Encounter for preprocedural cardiovascular examination
CPT/HCPCS: 47562; 36415; 80053; 80076; 83690; 83735; 83880; 84484; 85025; 85610; 85730; 93005; 94664; 99285; A4217; A4649; J0131; J1100; J2405; J2543; J2704; J3010; J3490; J7030

== ENCOUNTER → 2025-06-21 | Outpatient (CLI) | payer MEDICARE, BC, SELFPAY ==
[2025-06-21 09:39] LABS: Basophils # (Auto) 0.0 Thou/mm3 (0.0-0.2); Basophils % (Auto) 1 % (0-2.5); Eosinophils # (Auto) 0.1 Thou/mm3 (0.0-0.5); Eosinophils % (Auto) 2 % (0-10); Hematocrit 42.8 % (36.0-46.0); Hemoglobin 14.1 g/dL (12.0-16.0); Immature Granulocytes Auto 0.01 Thou/mm3 (0.00-0.00); Lymphocytes # (Auto) 1.6 Thou/mm3 (1.0-4.8); Lymphocytes % (Auto) 39 % (10-50); Mean Corpuscular HGB Conc 32.9 g/dl (31.0-37.0); Mean Corpuscular Hemoglobin 29.1 pg (25.0-35.0); Mean Corpuscular Volume 88 fL (80-100); Monocytes # (Auto) 0.5 Thou/mm3 (0.0-0.8); Monocytes % (Auto) 12 % (0-12); Neutrophils # (Auto) 1.9 Thou/mm3 (1.8-7.7); Neutrophils % (Auto) 46 % (37-80); Nucleated Red Blood Cell # 0.00 Thou/mm3 (0.00-0.00); Nucleated Red Blood Cell % 0 /100 WBC (0); Platelet Count 182 Thou/mm3 (140-440); RDW Standard Deviation 41.9 fL (36.4-46.3); Red Blood Count 4.84 Miln/mm3 (4.00-5.20); White Blood Count 4.1 Thou/mm3 (3.6-11.0)
[2025-06-21 10:01] LABS: Alanine Aminotransferase 28 U/L (10-49); Albumin, Serum 4.7 gm/dL (3.4-4.8); Albumin/Globulin Ratio 2.0 (1.2-2.2); Alkaline Phosphatase 68 U/L (46-116); Anion Gap 11 (7-16); Aspartate Amino Transferase 23 U/L (0-34); BUN/Creatinine Ratio 19 Ratio (12-20); Bilirubin,Total 0.5 mg/dL (0.3-1.2); Blood Urea Nitrogen 17 mg/dL (9-23); Calcium 10.2 mg/dL (8.3-10.6); Calcium (Corrected) 10.2 mg/dL (8.5-10.1); Carbon Dioxide 26.9 mMol/L (20.0-31.0); Cardiac Risk Estimate 2.0 RATIO (3.7-5.6); Chloride 107 mMol/L (98-107); Cholesterol 136 mg/dL (132-200); Creatinine (Component) 0.9 mg/dL (0.6-1.3); Globulin 2.3 gm/dL (2.3-3.5); Glucose 97 mg/dL (74-106); HDL Cholesterol 67 mg/dL (40-60); LDL Cholesterol,Calculated 55 mg/dL (0-130); Osmolality,Calculated 290 (275-295); Potassium 4.2 mMol/L (3.4-5.1); Sodium 145 mMol/L (136-145); Thyroid Stimulating Hormone 3.10 uIU/mL (0.55-4.78); Total Protein 7.0 gm/dL (5.7-8.2); Triglycerides 70 mg/dL (30-150); eGFR > 60 See Note
== END | disposition home or self-care (01) ==
PROVIDERS: PCP Family Medicine; Referring Provider Family Medicine; Visit Provider Family Medicine
DX: E78.2 Mixed hyperlipidemia (principal)
CPT/HCPCS: 36415; 80053; 80061; 84443; 85025